=== PATIENT | female | born 1970 | race Caucasian/White ===

== ENCOUNTER → 2025-04-14 | Day surgery (SDC) | payer OTHER ==
[~2025-04-14] MED LIST: ABILIFY2 MG PO; AMLODIPINE BESY10 MG PO; ATORVASTATIN CA20 MG PO; BENICAR20 MG PO; DEPAKOTE ER500 MG PO; FENTANYL CITRATE/PF 100MCG/2 ML INJ ONE; FUROSEMIDE40 MG PO; GLUCAGON FOR INJ 1 MG VIAL ONE; HYOSCYAMINE SULFATE 0.5 MG/ML INJ ONE; KETAMINE HCL INJ 50 MG/ML 10 ML VIAL ONE; LEVOTHYROXINE50 MCG PO; LIDOCAINE HCL 2% LOCAL INJ 5 ML SDV VIAL INJ ONE; LISINOPRIL10 MG PO; LYRICA100 MG PO; METFORMIN HCL500 MG PO; NEURONTIN400 MG PO; NOVOLOG100 UNIT/1 SC; ONDANSETRON HCL INJ 2MG/ML 2ML 2 MG/ML VIAL ONE; PROPOFOL IV EMULSION 10 MG/ML 20 ML VIAL ONE; PROPOFOL IV EMULSION 50 ML IV ONE; PROTONIX40 MG/ML PO; TRAZODONE HCL50 MG PO; TRESIBA100 UNIT/1 SQ
[2025-04-14] MEDS: LACTATED RINGER'S 1,000 ML ONE (05:54)
[2025-04-14] MEDS: INSULIN REGULAR, HUMAN 100 UNIT/1 ML ONE (07:44)
[2025-04-14 09:41] VITALS: TEMP 97.2
[2025-04-14 10:00] VITALS: BP 116/71; PULSE 61; RESP 18; O2SAT 98
[2025-04-14 14:36] LABS: WBC,FECAL (FECAL LACTOFERRIN) NEGATIVE (NEGATIVE)
[2025-04-14 14:37] LABS: CDIFF AG QUIK CHEK **POSITIVE** (NEGATIVE); CDIFF TOX QUIK CHEK NEGATIVE (NEGATIVE)
== END | disposition home or self-care (01) ==
LOC: OR 05:00
PROVIDERS: ATTEND Internal Medicine Gastroenterology
DX: K52.9 Noninfective gastroenteritis and colitis, unspecified (principal); K63.5 Polyp of colon; K62.89 Other specified diseases of anus and rectum; K59.09 Other constipation; K64.8 Other hemorrhoids; K21.9 Gastro-esophageal reflux disease without esophagitis; K44.9 Diaphragmatic hernia without obstruction or gangrene; E11.9 Type 2 diabetes mellitus without complications; I10 Essential (primary) hypertension; Z71.89 Other specified counseling; E78.00 Pure hypercholesterolemia, unspecified; E03.9 Hypothyroidism, unspecified; F31.9 Bipolar disorder, unspecified; F17.210 Nicotine dependence, cigarettes, uncomplicated; Z01.810 Encounter for preprocedural cardiovascular examination; Z79.84 Long term (current) use of oral hypoglycemic drugs; Z79.4 Long term (current) use of insulin; Z79.899 Other long term (current) drug therapy; Z68.37 Body mass index [BMI] 37.0-37.9, adult; Z71.3 Dietary counseling and surveillance; Z87.440 Personal history of urinary (tract) infections
CPT/HCPCS: 36415; 45380; 45385; 82948; 83630; 83993; 87045; 87177; 87324; 87328; 87449; 93005; J1610; J1980; J2003; J2405; J2704 ×2; J3010; J7121; 45378